=== PATIENT | female | born 1955 | race Caucasian/White ===

== ENCOUNTER 2018-09-19 07:28 | Emergency (ER) | payer MEDICARE ==
[~2018-09-19] VITALS: Ht 167.6 cm; Wt 67.1 kg
[2018-09-19 07:39] VITALS: Ht 167.6 cm; Wt 67.1 kg
[2018-09-19 07:53] LABS: BASOPHIL % 0.5 % (0-2); PLATELET COUNT 196 x10^3mcL (130-400); RED CELL DISTRIBUTION WIDTH 13.5 % (11.5-14.5)
[2018-09-19 08:00] LABS: CALCIUM 9.6 mg/dL (8.5-10.1); CARBON DIOXIDE 24.7 mmol/L (21-32); CHLORIDE SERUM 102 mmol/L (98-107); CREATININE SERUM 0.8 mg/dL (0.6-1.0); GFR1 > 60 mL/min; GLUCOSE SERUM 114 mg/dL (74-106); POTASSIUM SERUM 4.2 mmol/L (3.5-5.1); SODIUM SERUM 136 mmol/L (136-145)
[2018-09-19 08:04] LABS: ALBUMIN 3.8 g/dL (3.4-5.0); ALKALINE PHOSPHATASE 56 U/L (46-116); ALT/SGPT 13 U/L (14-59); AST/SGOT 5 U/L (15-37); BILIRUBIN TOTAL 0.79 mg/dL (0.20-1.00); TOTAL PROTEIN, SERUM 6.9 g/dL (6.4-8.2)
[2018-09-19] MEDS ORDERED: NEU300 PO ×2 (09:02)
[2018-09-19] MEDS ORDERED: PROZAC40 MG PO (09:03)
[2018-09-19] MEDS ORDERED: ATIVAN2 MG PO (09:03)
[2018-09-19] MEDS ORDERED: TRAZODONE HCL300 MG PO (09:03)
[2018-09-19 12:07] VITALS: BP 154/94
== END 2018-09-19 12:07 | disposition home or self-care (01) ==
LOC: ED 07:28
DX: F41.9 Anxiety disorder, unspecified (principal); Z88.8 Allergy status to other drugs, medicaments and biological substances; R07.9 Chest pain, unspecified
CPT/HCPCS: 36415; Q0092

== ENCOUNTER 2019-04-02 06:06 | Emergency (ER) | payer MEDICARE ==
[~2019-04-02] VITALS: Ht 167.6 cm; Wt 68.0 kg
[~2019-04-02 06:06] MED LIST: ATIVAN2 MG PO; NEU300 PO; PROZAC40 MG PO; TRAZODONE HCL300 MG PO
[2019-04-02 06:18] VITALS: Ht 167.6 cm; Wt 68.0 kg
[2019-04-02 06:38] LABS: BASOPHIL % 0.7 % (0-2); PLATELET COUNT 173 x10^3mcL (130-400); RED CELL DISTRIBUTION WIDTH 12.7 % (11.5-14.5)
[2019-04-02 06:51] LABS: CALCIUM 8.9 mg/dL (8.5-10.1); CARBON DIOXIDE 34.8 mmol/L (21-32); CHLORIDE SERUM 105 mmol/L (98-107); CREATININE SERUM 0.9 mg/dL (0.6-1.0); GFR1 > 60 mL/min; GLUCOSE SERUM 97 mg/dL (74-106); POTASSIUM SERUM 4.6 mmol/L (3.5-5.1); SODIUM SERUM 141 mmol/L (136-145)
[2019-04-02 06:55] LABS: ALBUMIN 3.4 g/dL (3.4-5.0); ALKALINE PHOSPHATASE 43 U/L (46-116); ALT/SGPT 19 U/L (14-59); AST/SGOT 12 U/L (15-37); BILIRUBIN TOTAL 0.5 mg/dL (0.20-1.00); TOTAL PROTEIN, SERUM 6.5 g/dL (6.4-8.2)
[2019-04-02 10:13] VITALS: BP 112/81
== END 2019-04-02 10:13 | disposition home or self-care (01) ==
LOC: ED 06:06
PROVIDERS: Emergency Medicine
DX: J40 Bronchitis, not specified as acute or chronic (principal); J44.9 Chronic obstructive pulmonary disease, unspecified; Z88.8 Allergy status to other drugs, medicaments and biological substances; F17.210 Nicotine dependence, cigarettes, uncomplicated
CPT/HCPCS: J1885; Q0092

== ENCOUNTER 2019-04-19 08:45 | Emergency (ER) | payer MEDICARE ==
[~2019-04-19] VITALS: Ht 154.9 cm; Wt 54.4 kg
[2019-04-19 08:54] VITALS: Ht 154.9 cm; Wt 54.4 kg
[2019-04-19 10:10] LABS: BASOPHIL % 0.1 % (0-2); PLATELET COUNT 151 x10^3mcL (130-400); RED CELL DISTRIBUTION WIDTH 12.8 % (11.5-14.5)
[2019-04-19 10:42] LABS: CARBON DIOXIDE 31.9 mmol/L (21-32); CHLORIDE SERUM 104 mmol/L (98-107); CREATININE SERUM 0.8 mg/dL (0.6-1.0); GFR1 > 60 mL/min; GLUCOSE SERUM 124 mg/dL (74-106); POTASSIUM SERUM 4.7 mmol/L (3.5-5.1); SODIUM SERUM 143 mmol/L (136-145); TOTAL PROTEIN, SERUM 6.5 g/dL (6.4-8.2)
[2019-04-19 10:43] LABS: ALT/SGPT 33 U/L (14-59); AST/SGOT 40 U/L (15-37); BILIRUBIN TOTAL 0.74 mg/dL (0.20-1.00); CALCIUM 8.8 mg/dL (8.5-10.1)
[2019-04-19 10:49] LABS: ALKALINE PHOSPHATASE 61 U/L (46-116); LIPASE 286 IU/L (73-393)
[2019-04-19 13:59] VITALS: BP 148/72
== END 2019-04-19 13:59 | disposition home or self-care (01) ==
LOC: ED 08:45
PROVIDERS: Emergency Medicine
DX: R07.89 Other chest pain (principal); R10.816 Epigastric abdominal tenderness; J44.9 Chronic obstructive pulmonary disease, unspecified; F17.200 Nicotine dependence, unspecified, uncomplicated; Z88.8 Allergy status to other drugs, medicaments and biological substances
CPT/HCPCS: 83880; 99406; J3490; J7030